=== PATIENT | female | born 1950 | race Caucasian/White ===

== ENCOUNTER → 2018-09-03 | Outpatient (CLI) | payer MEDICARE, OTHER ==
[~2018-09-03] MED LIST: AMIO200 PO; AMLO5 PO; ASPI325 PO; BUPR150T2 PO; CHOL10002 PO; CITA20 PO; DEXL60CA3 PO; ERGO400 PO; ESCI20 PO; FURO20 PO; LEVSOD100 PO; LEVSOD137 PO; LEVSOD175 PO; LOSA50 PO; LOSHYD PO; METR250 PO; NEBI5 PO; PRASUGREL 10 MG; ROSU5 PO; [UNRECOGNIZED DRUG - OTHER]; [UNRECOGNIZED DRUG - OTHER]
[2018-09-05 15:07] LABS: HPV 16 Negative (Negative); HPV 18 Negative (Negative); HPV OTHER HR TYPES Negative (Negative)
== END | disposition home or self-care (01) ==
LOC: LAB 15:30 → LAB SHORT 15:30
PROVIDERS: Nurse Practitioner Women's Health
DX: Z12.4 Encounter for screening for malignant neoplasm of cervix (principal); R68.89 Other general symptoms and signs; Z87.410 Personal history of cervical dysplasia
CPT/HCPCS: 87624; G0123

== ENCOUNTER 2020-10-20 09:53 | Day surgery (SDC) | payer MEDICARE ==
[~2020-10-20] VITALS: Ht 170.2 cm; Wt 89.8 kg
[~2020-10-20 09:53] MED LIST changes: +ATOR10 PO; +LOSARTAN-HCTZ1 EAC5 PO; +Metoprolol Succ25 MG PO; +NEXIUM PO; +OMEGA-3-FISH O1 EAC3 PO; +SPIR25 PO; +VITAMIN D310 MC4 PO; +VITB2 PO; +ZOLP5 PO; +[UNRECOGNIZED DRUG - OTHER] PO
--- NOTE | 2020-10-20 11:49 | NUR ---
Ambulatory in Day Surgery History, Chart, Medications and Allergies reviewed before start of procedure. Lungs clear T/O to Auscultation. Patient confirms NPO status and agrees with scheduled surgery. Pre-Op teaching done. Pt verbalizes understanding. Patient States Post-Procedure ride home has been arranged.
--- NOTE | 2020-10-20 15:30 | NUR ---
FRIEND BROUGHT TO STEP TO EDUCATE ON DRAIN USAGE WITH PATENT. GIVEN TYLENAL PER ORDERS FOR PAIN. DISCHARGE INSTRUCTIONS AND DRAIN CARE GONE OVER WITH BOTH PATIENT AND FRIEND.
== END 2020-10-20 23:12 | disposition home or self-care (01) ==
LOC: ORSCMMR 09:53 → NM 11:00 → ORSCMMR 23:12
PROVIDERS: Surgery
PROC: 07B60ZX Excision of Left Axillary Lymphatic, Open Approach, Diagnostic (ICD-10-PCS; principal; 2020-10-20 12:00)
PROC: 0HTU0ZZ Resection of Left Breast, Open Approach (ICD-10-PCS; principal; 2020-10-20 12:00)
DX: C50.812 Malignant neoplasm of overlapping sites of left female breast (principal); D36.0 Benign neoplasm of lymph nodes; Z17.0 Estrogen receptor positive status [ER+]; E11.9 Type 2 diabetes mellitus without complications; G47.33 Obstructive sleep apnea (adult) (pediatric); I25.2 Old myocardial infarction; Z79.899 Other long term (current) drug therapy; Z79.82 Long term (current) use of aspirin
CPT/HCPCS: 38792; 88307; 88342; A9270; A9520; J0360; J0690; J1100; J2060; J2250; J2405; J2704; J2765; J3010; J7120; Q9968

== ENCOUNTER → 2024-01-07 | Outpatient (CLI) | payer MEDICARE | LOC: LAB 19:08 → LAB SHORT 19:08 | DX: N39.0 Urinary tract infection, site not specified (principal) | CPT/HCPCS: 87077; 87086; 87186 ==

== ENCOUNTER → 2024-01-08 | Outpatient (CLI) | payer MEDICARE ==
[2024-01-08 13:40] LABS: BASOPHILS ABSOLUTE AUTO 0.05 K/mm3 (0.00-0.23); BASOPHILS PERCENT AUTO 0 % (0-2); EOSINOPHILS ABSOLUTE AUTO 0.02 K/mm3 (0.00-0.68); EOSINOPHILS PERCENT AUTO 0 % (0-6); Hematocrit 33.8 % (33.0-51.0); Hemoglobin 11.4 g/dL (11.5-16.0); IMMATURE GRAN ABSOLUTE AUTO 0.05 K/mm3 (0.00-0.10); IMMATURE GRAN PERCENT AUTO 0 % (0-1); LYMPHOCYTES ABSOLUTE AUTO 0.83 K/mm3 (0.84-5.20); LYMPHOCYTES PERCENT AUTO 7 % (21-46); MONOCYTES ABSOLUTE AUTO 1.13 K/mm3 (0.16-1.47); MONOCYTES PERCENT AUTO 10 % (4-13); Mean Corpuscular HGB 30.6 pg (26.0-34.0); Mean Corpuscular HGB Conc 33.7 g/dL (31.5-36.5); Mean Corpuscular Volume 91 fL (80-100); Mean Platelet Volume 11.2 fL (9.1-12.4); NEUTROPHILS PERCENT AUTO 82 % (41-73); Platelet Count 105 K/mm3 (150-400); RDW Coefficient Variation 12.8 % (11.7-14.2); Red Blood Cell Count 3.73 M/mm3 (3.80-5.20); White Blood Cell Count 11.28 K/mm3 (4.00-11.30)
[2024-01-08 13:52] LABS: Albumin, Blood 3.3 g/dL (3.4-5.0); Albumin/Globulin Ratio 0.8 (0.8-1.8); Bilirubin, Total 1.1 mg/dL (0.1-1.0); Calcium, Blood 9.4 mg/dL (8.5-10.1); Creatinine, Blood 1.38 mg/dL (0.40-1.00); Globulin, Blood 4.4 g/dL (2.2-4.0); Potassium, Blood 3.6 mmol/L (3.5-5.5); Total Protein, Blood 7.7 g/dL (6.4-8.2)
== END ==
LOC: LAB SHORT 13:35 → LAB 13:35
PROVIDERS: Family Medicine
DX: N39.0 Urinary tract infection, site not specified (principal)
CPT/HCPCS: 80053; 85025

== ENCOUNTER → 2024-02-07 | Outpatient (CLI) | payer MEDICARE | LOC: LAB SHORT 16:15 → LAB 16:15 | DX: R35.0 Frequency of micturition (principal) | CPT/HCPCS: 87077; 87086; 87186 ==

== ENCOUNTER → 2024-02-27 | Outpatient (CLI) | payer MEDICARE | LOC: LAB 15:40 → LAB SHORT 15:40 | DX: N39.0 Urinary tract infection, site not specified (principal) | CPT/HCPCS: 87086 ==

== ENCOUNTER → 2025-01-21 | Outpatient (CLI) | payer MEDICARE | LOC: LAB 17:51 → LAB SHORT 17:51 | DX: N39.0 Urinary tract infection, site not specified (principal) | CPT/HCPCS: 87086; 87147 ==